=== PATIENT | male | born 1945 | race Caucasian/White ===

== ENCOUNTER 2024-11-15 06:52 | Day surgery (SDC) | payer OTHER ==
[2024-11-13 13:50] VITALS: BMI 23.8
[2024-11-15] MEDS ORDERED: Bupivacaine HCl 0.5%/Epinephrine 1:200,000/PF 30 ml Vial ONE (10:29)
[2024-11-15] MEDS ORDERED: Sevoflurane 250 ML INH ANEST BOTTLE ONE (10:29)
[2024-11-15] MEDS ORDERED: Bupivacaine/Epinephrine 0.25% 30 ML VIAL ONE (10:35)
[2024-11-15] MEDS ORDERED: Lidocaine 1% PF 5 ML VIAL ONE (10:36)
[2024-11-15] MEDS ORDERED: PROPOFOL 20 ML ONE (10:36)
[2024-11-15] MEDS ORDERED: CEFAZOLIN 2 GM VIAL ONE (10:39)
[2024-11-15] MEDS ORDERED: PHENYLEPHRINE-NS 100 MCG/ML 10 ML SYRINGE ONE (11:28)
== END 2024-11-15 13:10 | disposition home or self-care (01) ==
LOC: CSHSDC 06:52
PROVIDERS: ATTEND Surgery
PROC: 0HBBXZZ Excision of Right Upper Arm Skin, External Approach (ICD-10-PCS; principal; 2024-11-15)
PROC: 07B50ZZ Excision of Right Axillary Lymphatic, Open Approach (ICD-10-PCS; principal; 2024-11-15)
DX: C43.61 Malignant melanoma of right upper limb, including shoulder (principal); F17.200 Nicotine dependence, unspecified, uncomplicated; Z90.89 Acquired absence of other organs
CPT/HCPCS: 11604; 13121; 13122; 38525; 78195; A9541; J2704; J3010; Q9968; 88305; 88307; 88342

== ENCOUNTER 2025-02-04 09:53 | Inpatient (IN) | payer OTHER ==
[2025-02-04] MEDS ORDERED: Aspirin 325 MG TAB ONE (11:29)
[2025-02-04 12:15] LABS: #Basophils 0.05 10x3/uL (0.0-0.2); #Eosinophils 0.34 10x3/uL (0.0-0.5); #Monocytes 0.98 10x3/uL (0.0-1.1); #Neutrophils 8.16 10x3/uL (1.5-8.4); %Basophils 0.5 % (0.0-2.0); %Eosinophils 3.1 % (0.0-6.0); %Lymphocytes 12.8 % (18.0-47.0); %Monocytes 8.9 % (0.0-10.0); %Neutrophils 74.2 % (40.0-75.0); Hematocrit 44.0 % (38.8-50.0); Hemoglobin 15.2 g/dL (13.5-17.5); Mean Corpuscular Hemoglobin 29.5 pg (27.0-33.0); Mean Corpuscular Volume 85.4 fL (81.2-95.1); Platelet Count 301 10x3/uL (150-450); Red Blood Cell (RBC) Count 5.15 10x6/uL (4.32-5.72); White Blood Cell (WBC) Count 11.00 10x3/uL (3.5-10.5)
[2025-02-04 12:17] LABS: ALT (SGPT) 302 U/L (Less than 45); AST (SGOT) 390 U/L (11-34); Albumin 3.8 g/dL (3.1-4.5); Alkaline Phosphatase 82 U/L (40-110); Anion Gap 15 mmol/L (10-20); BUN (Urea Nitrogen) 30 mg/dL (8.4-25.7); Bilirubin, Total 0.6 mg/dL (0.3-1.2); Calc. Creatinine Clearance 0 mL/min (70-130); Calcium 9.2 mg/dL (7.8-10.44); Carbon Dioxide 25 mmol/L (23-31); Chloride 102 mmol/L (98-107); Globulin 2.6 g/dL (2.4-3.5); Glucose 96 mg/dL (83-110); Lipase 15 U/L (8-78); Magnesium 1.9 mg/dL (1.6-2.6); Potassium 4.9 mmol/L (3.5-5.1); Sodium 137 mmol/L (136-145)
[2025-02-04 12:26] LABS: Troponin I 0.427 ng/mL (< 0.028)
[2025-02-04 12:35] LABS: CK (CPK) 5936 U/L (30-200)
[2025-02-04] MEDS ORDERED: hydrALAZINE 20 MG/ML VIAL SLOW IVP PRN (14:38)
[2025-02-04] MEDS ORDERED: Ondansetron PF 4 MG/2 ML Vial IVP PRN (14:43)
[2025-02-04 16:40] VITALS: BMI 24.3
[2025-02-04] MEDS: Acetaminophen 325 MG TAB PO SCH (20:29)
[2025-02-04] MEDS: Famotidine 20 MG TAB PO SCH (20:30)
[2025-02-04] MEDS: Heparin 5,000 UNITS/ML VIAL SC SCH (20:31)
[2025-02-05 04:50] LABS: #Basophils 0.03 10x3/uL (0.0-0.2); #Eosinophils 0.35 10x3/uL (0.0-0.5); #Monocytes 0.82 10x3/uL (0.0-1.1); #Neutrophils 5.79 10x3/uL (1.5-8.4); %Basophils 0.4 % (0.0-2.0); %Eosinophils 4.3 % (0.0-6.0); %Lymphocytes 14.4 % (18.0-47.0); %Monocytes 10.0 % (0.0-10.0); %Neutrophils 70.4 % (40.0-75.0); Hematocrit 43.0 % (38.8-50.0); Hemoglobin 14.8 g/dL (13.5-17.5); Mean Corpuscular Hemoglobin 29.8 pg (27.0-33.0); Mean Corpuscular Volume 86.5 fL (81.2-95.1); Platelet Count 266 10x3/uL (150-450); Red Blood Cell (RBC) Count 4.97 10x6/uL (4.32-5.72); White Blood Cell (WBC) Count 8.21 10x3/uL (3.5-10.5)
[2025-02-05 05:09] LABS: Anion Gap 12 mmol/L (10-20); BUN (Urea Nitrogen) 26 mg/dL (8.4-25.7); Calc. Creatinine Clearance 74 mL/min (70-130); Calcium 9.2 mg/dL (7.8-10.44); Carbon Dioxide 27 mmol/L (23-31); Cardiac Risk 4.7 (Less than 4.5); Chloride 104 mmol/L (98-107); Cholesterol 200 mg/dl (< 200 Desired); Glucose 103 mg/dL (83-110); HDL Cholesterol 43 mg/dL (>60 Neg Risk); LDL Cholesterol, Calculated 119 mg/dL; Potassium 4.6 mmol/L (3.5-5.1); Sodium 138 mmol/L (136-145); Triglycerides 192 mg/dL (Less than 150)
[2025-02-05] MEDS: Acetaminophen 325 MG TAB PO SCH (09:01)
[2025-02-05 09:13] LABS: ALT (SGPT) 306 U/L (Less than 45); AST (SGOT) 421 U/L (11-34); Albumin 3.8 g/dL (3.1-4.5); Alkaline Phosphatase 82 U/L (40-110); Bilirubin, Direct 0.3 mg/dL (0.1-0.3); Bilirubin, Total 0.9 mg/dL (0.3-1.2)
[2025-02-05] MEDS ORDERED: METHYLPREDNISOLONE SOD SUCC IVPB SCH (10:30)
[2025-02-05] MEDS ORDERED: SODIUM CHLORIDE 0.9% IVPB SCH (10:30)
[2025-02-05] MEDS: Aspirin 81 mg Enteric Coated Tablet PO SCH (10:40)
[2025-02-05 11:11] LABS: Troponin I 0.333 ng/mL (< 0.028)
[2025-02-05 14:37] VITALS: BMI 24.3
[2025-02-05 15:22] LABS: Troponin I 0.503 ng/mL (< 0.028)
[2025-02-05 19:06] LABS: Troponin I 0.457 ng/mL (< 0.028)
[2025-02-05] MEDS: FLU (Fluad Triv) 25-26 (65UP)PF 45 MCG/0.5 ML Syringe IM ONE (19:24)
[2025-02-06 05:03] LABS: ALT (SGPT) 305 U/L (Less than 45); AST (SGOT) 347 U/L (11-34); Albumin 3.7 g/dL (3.1-4.5); Alkaline Phosphatase 85 U/L (40-110); Anion Gap 14 mmol/L (10-20); BUN (Urea Nitrogen) 22 mg/dL (8.4-25.7); Bilirubin, Total 0.5 mg/dL (0.3-1.2); Calc. Creatinine Clearance 88 mL/min (70-130); Calcium 9.6 mg/dL (7.8-10.44); Carbon Dioxide 24 mmol/L (23-31); Chloride 105 mmol/L (98-107); Globulin 2.9 g/dL (2.4-3.5); Glucose 126 mg/dL (83-110); Potassium 4.7 mmol/L (3.5-5.1); Sodium 138 mmol/L (136-145)
[2025-02-06 05:19] LABS: Hematocrit 43.3 % (38.8-50.0); Hemoglobin 15.0 g/dL (13.5-17.5); Mean Corpuscular Hemoglobin 29.6 pg (27.0-33.0); Mean Corpuscular Volume 85.6 fL (81.2-95.1); Platelet Count 293 10x3/uL (150-450); Red Blood Cell (RBC) Count 5.06 10x6/uL (4.32-5.72); White Blood Cell (WBC) Count 11.24 10x3/uL (3.5-10.5)
[2025-02-06 05:22] LABS: CK (CPK) 4781 U/L (30-200)
[2025-02-06 05:45] LABS: MDiff Complete? YES; Platelet Adequacy Comment Appears Adequate; RBC Morphology Within Normal Limits
[2025-02-06 11:35] LABS: dsDNA IgG Antibody Less than 0.6 IU/mL (<10 Negative)
[2025-02-06 12:03] LABS: ANA Symphony (Qualitative) Negative (Negative); ANA Symphony (Quantitative) Less than 0.1 Ratio (< 0.7 Negative)
[2025-02-06] MEDS: Pyridostigmine Bromide IR 60 MG TAB PO SCH ×3 (16:02→22:08)
[2025-02-07 09:07] LABS: #Basophils Less than 0.03 10x3/uL (0.0-0.2); #Eosinophils Less than 0.03 10x3/uL (0.0-0.5); #Monocytes 1.18 10x3/uL (0.0-1.1); #Neutrophils 10.37 10x3/uL (1.5-8.4); %Basophils 0.2 % (0.0-2.0); %Eosinophils 0.0 % (0.0-6.0); %Lymphocytes 11.9 % (18.0-47.0); %Monocytes 8.9 % (0.0-10.0); %Neutrophils 78.4 % (40.0-75.0); Hematocrit 39.9 % (38.8-50.0); Hemoglobin 13.7 g/dL (13.5-17.5); Mean Corpuscular Hemoglobin 29.5 pg (27.0-33.0); Mean Corpuscular Volume 86.0 fL (81.2-95.1); Platelet Count 293 10x3/uL (150-450); Red Blood Cell (RBC) Count 4.64 10x6/uL (4.32-5.72); White Blood Cell (WBC) Count 13.23 10x3/uL (3.5-10.5)
[2025-02-07 09:29] LABS: ALT (SGPT) 317 U/L (Less than 45); AST (SGOT) 258 U/L (11-34); Albumin 3.6 g/dL (3.1-4.5); Alkaline Phosphatase 71 U/L (40-110); Anion Gap 11 mmol/L (10-20); BUN (Urea Nitrogen) 22 mg/dL (8.4-25.7); Bilirubin, Total 0.5 mg/dL (0.3-1.2); CK (CPK) 2306 U/L (30-200); Calc. Creatinine Clearance 83 mL/min (70-130); Calcium 9.5 mg/dL (7.8-10.44); Carbon Dioxide 27 mmol/L (23-31); Chloride 106 mmol/L (98-107); Globulin 2.4 g/dL (2.4-3.5); Glucose 98 mg/dL (83-110); Potassium 4.3 mmol/L (3.5-5.1); Sodium 140 mmol/L (136-145)
[2025-02-07 10:53] LABS: Troponin I 0.202 ng/mL (< 0.028)
[2025-02-07 12:07] VITALS: BP 133/83; TEMP 98.6
== END 2025-02-07 14:15 | disposition home or self-care (01) | DRG 56 ==
LOC: CSHERS 09:53 → CSHTELE 13:07 → OBSVTOIN 02-05 16:57
PROVIDERS: ADMIT Hospitalist; ATTEND Hospitalist
DX: G70.00 Myasthenia gravis without (acute) exacerbation (principal); I63.9 Cerebral infarction, unspecified; I24.89 Other forms of acute ischemic heart disease; M62.82 Rhabdomyolysis; R29.702 NIHSS score 2; R42 Dizziness and giddiness; Z98.890 Other specified postprocedural states; R79.89 Other specified abnormal findings of blood chemistry; Z71.6 Tobacco abuse counseling; C43.62 Malignant melanoma of left upper limb, including shoulder; T40.2X5A Adverse effect of other opioids, initial encounter; D72.829 Elevated white blood cell count, unspecified; F17.210 Nicotine dependence, cigarettes, uncomplicated
CPT/HCPCS: 36415; 70450; 70551; 71045; 71250; 80048; 80053; 80061; 80076; 82550; 83090; 83690; 83735; 83880; 84484; 85025; 86038; 86041; 86140; 86225; 93005; 93306; 93880; 96372; 96374; G0378; J1644; J2919; J7120